=== PATIENT | female | born 1945 | race Two or more races ===

== ENCOUNTER 2017-09-26 08:35 | Outpatient (CLI) | payer OTHER | END 2017-09-26 08:38 | disposition home or self-care (01) | LOC: LAB 08:35 | DX: D64.89 Other specified anemias (principal); E11.9 Type 2 diabetes mellitus without complications; E78.2 Mixed hyperlipidemia; I10 Essential (primary) hypertension; E03.8 Other specified hypothyroidism ==

== ENCOUNTER 2017-09-26 09:22 | Outpatient (CLI) | payer OTHER | END 2017-09-26 09:40 | disposition home or self-care (01) | LOC: MAMO-SONO 09:22 | DX: Z12.31 Encounter for screening mammogram for malignant neoplasm of breast (principal); Z87.898 Personal history of other specified conditions; Z12.39 Encounter for other screening for malignant neoplasm of breast; C50.912 Malignant neoplasm of unspecified site of left female breast; C50.911 Malignant neoplasm of unspecified site of right female breast ==

== ENCOUNTER 2017-09-26 11:13 | Outpatient (CLI) | payer OTHER | END 2017-09-26 11:34 | disposition home or self-care (01) | LOC: NUCLEAR 11:13 | DX: M81.0 Age-related osteoporosis without current pathological fracture (principal) ==

== ENCOUNTER 2018-05-13 10:53 | Outpatient (CLI) | payer OTHER | END 2018-05-13 12:16 | disposition home or self-care (01) | LOC: LAB 10:53 | DX: H43.11 Vitreous hemorrhage, right eye (principal); D68.8 Other specified coagulation defects ==

== ENCOUNTER 2018-05-13 11:44 | Outpatient (CLI) | payer OTHER | END 2018-05-13 11:53 | disposition home or self-care (01) | LOC: RAD 501 11:44 | DX: H43.11 Vitreous hemorrhage, right eye (principal); Z98.41 Cataract extraction status, right eye ==

== ENCOUNTER 2019-01-25 07:27 | Outpatient (CLI) | payer OTHER | END 2019-01-25 07:38 | disposition home or self-care (01) | LOC: LAB 07:27 | DX: D64.89 Other specified anemias (principal); E11.8 Type 2 diabetes mellitus with unspecified complications; E78.00 Pure hypercholesterolemia, unspecified; I10 Essential (primary) hypertension; E03.8 Other specified hypothyroidism; E55.9 Vitamin D deficiency, unspecified ==

== ENCOUNTER 2019-07-21 08:15 | Outpatient (CLI) | payer OTHER | END 2019-07-21 08:24 | disposition home or self-care (01) | LOC: LAB 08:15 | PROVIDERS: ATTEND Internal Medicine Sports Medicine | DX: D64.89 Other specified anemias (principal); E11.9 Type 2 diabetes mellitus without complications; E78.2 Mixed hyperlipidemia; I10 Essential (primary) hypertension; E03.8 Other specified hypothyroidism ==

== ENCOUNTER 2019-11-03 08:43 | Outpatient (CLI) | payer OTHER | END 2019-11-03 08:56 | disposition home or self-care (01) | LOC: LAB 08:43 | PROVIDERS: ATTEND Internal Medicine Sports Medicine | DX: D64.89 Other specified anemias (principal); E11.9 Type 2 diabetes mellitus without complications; E78.49 Other hyperlipidemia; K76.89 Other specified diseases of liver; E03.8 Other specified hypothyroidism; E55.9 Vitamin D deficiency, unspecified; R29.898 Other symptoms and signs involving the musculoskeletal system ==

== ENCOUNTER 2019-11-03 10:51 | Outpatient (CLI) | payer OTHER | END 2019-11-03 11:10 | disposition home or self-care (01) | LOC: MAMO-SONO 10:51 | PROVIDERS: ATTEND Internal Medicine Sports Medicine | DX: Z12.31 Encounter for screening mammogram for malignant neoplasm of breast (principal) ==

== ENCOUNTER 2021-06-16 08:21 | Outpatient (CLI) | payer OTHER | END 2021-06-16 08:23 | disposition home or self-care (01) | LOC: LAB 08:21 | PROVIDERS: ATTEND Internal Medicine Sports Medicine | DX: D64.9 Anemia, unspecified (principal); E11.9 Type 2 diabetes mellitus without complications; E78.2 Mixed hyperlipidemia; I10 Essential (primary) hypertension; E03.8 Other specified hypothyroidism; Z12.31 Encounter for screening mammogram for malignant neoplasm of breast ==

== ENCOUNTER 2021-06-16 09:20 | Outpatient (CLI) | payer OTHER | END 2021-06-16 09:25 | disposition home or self-care (01) | LOC: MAMO-SONO 09:20 | PROVIDERS: ATTEND Internal Medicine Sports Medicine | DX: Z12.31 Encounter for screening mammogram for malignant neoplasm of breast (principal) ==

== ENCOUNTER 2021-08-17 09:40 | Outpatient (CLI) | payer OTHER | END 2021-08-17 09:43 | disposition home or self-care (01) | LOC: NUCLEAR 09:40 | PROVIDERS: ATTEND Internal Medicine | DX: M81.0 Age-related osteoporosis without current pathological fracture (principal) ==

== ENCOUNTER 2021-08-17 11:45 | Outpatient (CLI) | payer OTHER | END 2021-08-17 11:47 | disposition home or self-care (01) | LOC: LAB 11:45 | PROVIDERS: ATTEND Internal Medicine | DX: Z01.810 Encounter for preprocedural cardiovascular examination (principal); Z12.11 Encounter for screening for malignant neoplasm of colon; Z13.820 Encounter for screening for osteoporosis; Z12.31 Encounter for screening mammogram for malignant neoplasm of breast; Z53.8 Procedure and treatment not carried out for other reasons; I10 Essential (primary) hypertension; K57.30 Diverticulosis of large intestine without perforation or abscess without bleeding; K64.1 Second degree hemorrhoids; H52.4 Presbyopia ==

== ENCOUNTER 2021-08-17 12:08 | Outpatient (CLI) | payer OTHER | END 2021-08-17 12:09 | disposition home or self-care (01) | LOC: RAD 12:08 | PROVIDERS: ATTEND Internal Medicine | DX: Z01.810 Encounter for preprocedural cardiovascular examination (principal); I10 Essential (primary) hypertension; K57.32 Diverticulitis of large intestine without perforation or abscess without bleeding; R10.9 Unspecified abdominal pain; K57.30 Diverticulosis of large intestine without perforation or abscess without bleeding; K64.1 Second degree hemorrhoids; H52.4 Presbyopia; Z53.8 Procedure and treatment not carried out for other reasons; Z13.820 Encounter for screening for osteoporosis; Z12.31 Encounter for screening mammogram for malignant neoplasm of breast ==